=== PATIENT | female | born 1970 | race African-American/Black ===

== ENCOUNTER 2018-11-11 16:29 | Emergency (ER) | payer SELFPAY ==
[~2018-11-11] VITALS: Ht 167.6 cm; Wt 135.6 kg
--- NOTE | 2018-11-11 17:05 | NUR ---
ED Nurse Note: PT walked in c/o left knee pain since yesterday, pt denies any injuries nor fall, reports hx gout. pt AA&ox4, gcs=15, skin warm and dry, resp even and unlabored on RA, noted tenderness on left knee, no open wound nor contusion nor deformity noted, will cont monitor.
[2018-11-11 17:10] VITALS: BP 166/104
[2018-11-11] MEDS: Solu-MEDROL 125mg Inj IM ONE (17:27)
[2018-11-11] MEDS: Ketorolac 60mg Inj IM ONE (17:28)
[2018-11-11] MEDS ORDERED: MEDROL DOSEPAK4 MG ORAL (18:36)
[2018-11-11] MEDS ORDERED: INDOMETHACIN25 MG PO (18:36)
--- NOTE | 2018-11-11 18:37 | Emergency Room Report ---
History of Present Illness General Chief Complaint: Pain Source: Patient Present Illness HPI 48-year-old female with a history of gout presents with left knee pain. States that she has had similar pain that happened 1 year ago and was told that she was having gout. States that she had a steroid injection intra-articularly in her left knee which resolved her symptoms at that time. She states that her pain began yesterday and she is on any medication for her symptoms. Patient denies any trauma, swelling, numbness, tingling, pressure, paralysis, cyanosis, bruising, loss of sensation, or loss of range of motion. Allergies: Coded Allergies: No Known Allergies (Unverified , 11/11/18) Patient History Past Medical History: see triage record Reviewed Nursing Documentation: PMH: Agreed; PSxH: Agreed Nursing Documentation-PMH Past Medical History: No History, Except For Hx Hypertension: Yes Review of Systems All Other Systems: negative except mentioned in HPI Physical Exam Vital Signs Date Time Temp Pulse Resp B/P (MAP) Pulse Ox O2 Delivery O2 Flow Rate FiO2 11/11/18 16:49 98.8 95 16 166/104 97 Room Air Sp02 EP Interpretation: reviewed, normal General Appearance: no apparent distress, alert, GCS 15, non-toxic Head: normocephalic, atraumatic Eyes: bilateral eye normal inspection, bilateral eye PERRL ENT: hearing grossly normal, normal pharynx, no angioedema, normal voice Respiratory: chest non-tender, lungs clear, normal breath sounds, speaking full sentences Cardiovascular #1: regular rate, rhythm, no edema, normal capillary refill Musculoskeletal: back normal, gait/station normal, normal range of motion, no calf tenderness, other - No erythema or induration, tender - Left knee Neurologic: alert, oriented x3, responsive, motor strength/tone normal, sensory intact, speech normal Psychiatric: judgement/insight normal, memory normal, mood/affect normal, no suicidal/homicidal ideation Skin: normal color, no rash, warm/dry, well hydrated Medical Decision Making PA Attestation Dr. Ruano is my supervising physician with whom patient management has been discussed with. Diagnostic Impression: Primary Impression: Left knee pain Qualified Codes: M25.562 - Pain in left knee Additional Impression: History of acute gouty arthritis ER Course 48-year-old female presents with left knee pain that began last night. On exam she has painful range of motion of the left knee but is able to ambulate but with pain. She has no signs of septic joint as there is no heat, excessive warmth, or induration or erythema. She does have a history of gout and was given Toradol and Solu-Medrol which improved her symptoms. She is unable to ambulate without any significant difficulty. Patient was advised to return for recheck within 2 to 3 days should her symptoms persist or worsen. At this time the patient appears stable for discharge home without any emergent exam findings. Will provide printed patient care instructions, and any necessary prescriptions. Care plan and follow up instructions have been discussed with the patient prior to discharge. Last Vital Signs Date Time Temp Pulse Resp B/P (MAP) Pulse Ox O2 Delivery O2 Flow Rate FiO2 11/11/18 17:58 98.8 11/11/18 17:10 95 16 166/104 97 Room Air Disposition: HOME, SELF-CARE Condition: Improved Scripts Methylprednisolone (Methylprednisolone*) 4MG Dspk 4 MG ORAL DIRECTED for 6 Days, #21 EA 0 Refills Day 1: Two tablets before breakfast, one after lunch, one after dinner, and two at bedtime. If started late in the day, take all six tablets at once or divide into two or three doses, unless otherwise directed by prescriber. Day 2: One tablet before breakfast, one after lunch, one after dinner, and two at bedtime Day 3: One tablet before breakfast, one after lunch, one after dinner, and one at bedtime Day 4: One tablet before breakfast, one after lunch, and one at bedtime Day 5: One tablet before breakfast and one at bedtime Day 6: One tablet before breakfast Prov: Ledy Myers 11/11/18 Indomethacin (INDOMETHACIN) 25 Mg Capsule 25 MG PO BID for 5 Days, #10 CAP Prov: Ledy Myers 11/11/18 Referrals: NOT CHOSEN IPA/,REFERRING (PCP) Patient Instructions: Gout Additional Instructions: Take medication as directed. Patient educated that there are several medical conditions and lifestyle choices that increase the risk of developing gout, including: Obesity, High blood pressure, Chronic kidney disease, Injury, Fasting , Consuming excessive amounts of alcohol (particularly beer, whiskey, gin, vodka , or rum) on a regular basis, Overeating, Consuming large amounts of meat, seafood, or beverages containing high fructose corn syrup (such as non-diet sodas), and Taking medications that affect blood levels of urate (especially diuretics), In people already diagnosed with gout, there are also certain characteristics that increase the risk of repeated attacks. These include: Injury or recent surgery, Fasting, Consuming excessive amounts of alcohol (wine may also be implicated as a risk for additional attacks of gout in people who have had prior attacks), Overeating, and Taking medications that affect blood levels of urate. Patient is encouraged to eat and drink: Low-fat dairy products , Foods made with complex carbohydrates (whole grains, brown rice, oats, beans) , Only a moderate amount of wine (up to two 5-ounce servings per day [about 300 mL per day] may be acceptable, unless the individual patient has found that this increases their risk of a gout attack), Coffee (may decrease serum uric acid levels), and Vitamin C (500 mg per day has a mild urate-lowering effect). Changes in diet are often recommended along with medications. Diet change alone is unlikely to lower blood urate levels by more than about 15 percent, even if the diet is severely restricted. When diet control is accompanied by weight loss (often with increased exercise), improvements in urate control can be more impressive. Please return to the ER immediately should you have any redness, swelling, heat or unable unable to move your knee or if your symptoms change or worsen. Ledy Myers Nov 11, 2018 18:37
[2018-11-11 18:40] VITALS: BP 148/89
--- NOTE | 2018-11-11 18:40 | NUR ---
ED Nurse Note: pt cleared to be d/c per ER provider, pt discharge and aftercare instruction provided w/ prescription, pt education done via discussion and handout, pt advised to follow up with pcp or return to ed if changes in condition, pt verbalized understanding and agrees with plan, vss, ambulatory w/ steady gait, left w/ all belongings, ID band removed. pt accompanied by family members. pt reports pain relief after medication.
== END 2018-11-11 18:40 | disposition home or self-care (01) ==
LOC: EMR 17:30
DX: M25.562 Pain in left knee (principal); I10 Essential (primary) hypertension
CPT/HCPCS: 96372; 99283; J2930